=== PATIENT | male | born 1950 | race Caucasian/White ===

== ENCOUNTER 2020-05-21 10:12 | Emergency (ER) | payer MEDICARE ==
[2020-05-21 10:50] LABS: INTERNATIONAL RATION (INR) 1.56; PROTHROMBIN TIME 18.8 SEC (11.4-15.4)
[2020-05-21 11:00] LABS: ALKALINE PHOSPHATASE 97 U/L (38-126); ANION GAP 8 (5-19); ASPARTATE AMINO TRANSFERASE 97 U/L (17-59); BILIRUBIN,TOTAL 8.1 mg/dL (0.2-1.3); BLOOD UREA NITROGEN 31 mg/dL (7-20); CALCIUM 8.7 mg/dL (8.4-10.2); CARBON DIOXIDE 24 mmol/L (22-30); CHLORIDE 100 mmol/L (98-107); GLUCOSE 200 mg/dL (75-110); POTASSIUM 3.4 mmol/L (3.6-5.0)
[2020-05-21 11:03] LABS: VENOUS BLOOD BASE EXCESS -0.1 mmol/L; VENOUS BLOOD HCO3 24.8 mmol/L (20-32); VENOUS BLOOD PCO2 41.7 mmHg (35-63); VENOUS BLOOD PH 7.39 (7.30-7.42)
--- NOTE | 2020-05-21 11:06 | RADIOLOGY REPORT (SQ) ---
EXAM DESCRIPTION: CHEST SINGLE VIEW IMAGES COMPLETED DATE/TIME: 05/21/2020 10:43 am REASON FOR STUDY: bed 9 sepsis protocol COMPARISON: None. EXAM PARAMETERS: NUMBER OF VIEWS: One view. TECHNIQUE: Single frontal radiographic view of the chest acquired. RADIATION DOSE: NA LIMITATIONS: None. FINDINGS: LUNGS AND PLEURA: No opacities, masses or pneumothorax. No pleural effusion. MEDIASTINUM AND HILAR STRUCTURES: No masses. Contour normal. HEART AND VASCULAR STRUCTURES: Heart normal in size. Normal vasculature. BONES: No acute findings. HARDWARE: None in the chest. OTHER: No other significant finding. IMPRESSION: NO ACUTE RADIOGRAPHIC FINDING IN THE CHEST. TECHNICAL DOCUMENTATION: JOB ID: [id number] 2010 [employer]- All Rights Reserved Reading location - IP/workstation name: [email or web address]
--- NOTE | 2020-05-21 11:44 | ER Document Report ---
ED General - General Chief Complaint: Fall Stated Complaint: WEAKNESS Time Seen by Provider: 05/21/20 11:18 Primary Care Provider: TARAN RODRIGUEZ PA-C [Primary Care Provider] - Follow up as needed Mode of Arrival: Medic Information source: Patient, Emergency Med Personnel Notes: 05/21/20 10:54 - ED Nursing Note by DIANA YEE Acct Num: [id number] : 1950 Patient Age: 69 Pt presents to the ED via EMS for CC of falls/weakness. EMS states that patient states that he has been having several falls the last couple of days with yesterday being the most recent day of falls. EMS states that patient states that the right leg is much more weaker than normal. EMS states that patient has a history of MS. EMS states that patient states that he is unable to stand straight up and extend his back completely. EMS states that patient had a negative rapid COVID test for them and that his temperature was 100.8. EMS states they did not give tylenol due to the patient having liver disease. EMS placed a 20G in LAC and gave the patient 350ml of LR. Pt states that he has progressively gotten weaker the last couple of days and thinks he is having a MS flare up. Pt states his hands and legs are weaker. Pt denies any SOB. Pt is noted to be retracting with lower abdominal muscles and having mild labor breathing. Pt is placed on 2L NC for comfort due to O2 sat 96 without oxygen. Pt right leg is noted to be swollen. Pt states that he stopped taking his "water pill" along time ago due to it making him urinate alot. Pt is noted to have jaundice in the face and eyes. MY NOTES 69-year-old male with chief complaint of falling and weakness. He has a past medical history of multiple sclerosis and also has some liver disease with ascites. Patient reports he stopped taking his diuretic because of increased urination. Patient has icteric appearing skin. Patient is fair historian but has often some garbled words. He appears to understand and speak with a [place] accent in Persian. Patient reports they moved to [place] 3 years ago from [place] and has not seen a neurologist for his multiple sclerosis since that time. He drags his right lower extremity when walking and yesterday was struggling to move from place to place and fell on the floor and laid there for 45 minutes. Jenelle who works at [employer] came home to f ind him on the floor and it took many minutes in order to help get him up. He does not have home health and his very thin elderly appearing is the main caregiver for this large man. He also has ascites of his abdomen with umbilicus outi. Patient and advise he has never been a drinking man but quit smoking 1 pack/day over 23 years ago. Patient's chest x-ray is NAD today. Patient repo rts he does have pain in his right anterior and lateral ribs after falling yesterday. He no longer has chest pain today but his troponin is 1.28 ; I spoke with Dr. Bañuelos at 1145 by telephone about this patient. He advised patient to be either admitted to [facility] if he has any febrile issues like with Covid or transfer to [facility] if not. He called back again at 1200 hrs. to advised the latter. His reports she works at [employer] only 5 minutes from their house and patient usually comes in on a daily basis and stays around an hour to to drink some coffee but otherwise does not come out of the house. TRAVEL OUTSIDE OF THE [place] IN LAST 30 DAYS: No - Related Data Allergies/Adverse Reactions: No Known Allergies Allergy (Verified 05/21/20 11:37) Past Medical History - Social History Smoking Status: Former Smoker - Patient quit smoking 23 years ago Cigarette use (# per day): No Chew tobacco use (# tins/day): No Smoking Education Provided: No Frequency of alcohol use: None - Denies ever having any alcohol use. Drug Abuse: None Lives with: Family Family History: Reviewed & Not Pertinent Patient has suicidal ideation: No Patient has homicidal ideation: No - Past Medical History Cardiac Medical History: Reports: None Pulmonary Medical History: Reports: None Review of Systems - Review of Systems Constitutional: See HPI, Fever, Malaise, Weakness EENT: No symptoms reported Cardiovascular: No symptoms reported Respiratory: No symptoms reported Gastrointestinal: No symptoms reported Genitourinary: No symptoms reported Male Genitourinary: No symptoms reported Musculoskeletal: No symptoms reported Skin: No symptoms reported Hematologic/Lymphatic: No symptoms reported Neurological/Psychological: No symptoms reported -: Yes All other systems reviewed and negative Physical Exam - Vital signs Vitals: Resp Pulse Ox 25 H 94 05/21/20 10:17 05/21/20 10:17 Interpretation: Normal - General General appearance: Appears well, Alert - HEENT Head: Normocephalic, Atraumatic Eyes: Normal Pupils: PERRL Sinus: Normal Nasal: Normal Mouth/Lips: Normal Mucous membranes: Dry - Respiratory Respiratory status: No respiratory distress Chest status: Nontender Breath sounds: Normal Chest palpation: Normal - Cardiovascular Rhythm: Regular Heart sounds: Normal auscultation Murmur: No - Abdominal Inspection: Morbidly Obese Distension: Distended - Ascites Bowel sounds: Normal Tenderness: Nontender Organomegaly: No organomegaly - Rectal Prostate: Other - Deferred - Genitourinary Scrotum: Other - Deferred - Back Back: Normal, Nontender - Extremities General upper extremity: Normal inspection, Nontender, Normal color, Normal ROM, Normal temperature General lower extremity: Normal color, Normal temperature, Other - Right lower extremity with sensation intact but no motor strength. Left leg able to lift against gravity but otherwise 4 out of 5 strength. Patient and report easily drags his right lower extremity and uneasy gait. He has been doing this for years. No: Mckenna's sign - Neurological Neuro grossly intact: Yes Cognition: Normal Orientation: AAOx4 [place] Coma Scale Eye Opening: Spontaneous [place] Coma Scale Verbal: Oriented [place] Coma Scale Motor: Obeys Commands Toni Coma Scale Total: 15 Speech: Normal Motor strength normal: LUE, RUE, LLE, RLE Sensory: Normal - Psychological Associated symptoms: Normal affect, Normal mood - Skin Skin Temperature: Warm Skin Moisture: Dry Skin Color: Normal Course - Vital Signs Vital signs: Temp Pulse Resp BP Pulse Ox 100.5 F H 17 106/47 L 98 05/21/20 10:18 05/21/20 14:00 05/21/20 12:01 05/21/20 14:00 - Laboratory Results Result Diagrams: 05/21/20 12:14 05/21/20 10:24 Laboratory Results Interpreted: 05/21/20 05/21/20 05/21/20 10:24 10:24 10:24 RBC Hgb Hct RDW Plt Count Lymph % (Auto) Seg Neutrophils % PT 18.8 H Sodium 131.5 L Potassium 3.4 L BUN 31 H Glucose 200 H Total Bilirubin 8.1 H Direct Bilirubin 6.0 H AST 97 H Creatine Kinase 690 H NT-Pro-B Natriuret Pep Total Protein 6.0 L Albumin 3.0 L Urine Protein Urine Blood Urine Urobilinogen 05/21/20 05/21/20 05/21/20 10:24 12:14 15:10 RBC 4.03 L Hgb 11.9 L Hct 35.2 L RDW 16.4 H Plt Count 61 L Lymph % (Auto) 6.3 L Seg Neutrophils % 84.8 H PT Sodium Potassium BUN Glucose Total Bilirubin Direct Bilirubin AST Creatine Kinase NT-Pro-B Natriuret Pep 2220 H Total Protein Albumin Urine Protein 30 H Urine Blood MODERATE H Urine Urobilinogen 2.0 H Critical Laboratory Results Reviewed: Yes Attending or Supervising Physician who Reviewed Labs: RYAN BALLARD JR - Radiology Results Radiology Results Interpreted: 05/21/20 12:23 Dr. Kaz sylvester read chest x-ray as NAD 05/21/20 13:00 Dr. Padilla called at 1300 to advise patient has very little ascites and most of the abdomen is abdominal adipose with some hernia. He does have splenomegaly. CT is being read as he discussed ultrasound with me. He did not tap this man for centesis. 05/21/20 14:49 Dr. Griffith read CTs with positive ascites around liver and spleen with renomegaly positive and also recannulization of the umbilical vein. CTA chest was negative chest x-ray was negative Critical Radiology Results Reviewed: Yes Attending or Supervising Physician who Reviewed Radiology: RYAN BALLARD JR EKG Interpretation by Me EKG shows normal: Sinus rhythm Rate: Normal Rhythm: NSR - With noHeart rate was [address] elevation with mild depression on anterior leads V5 and V6. Also Dr. Bañuelos evaluated this. There is no T wave inversion or T wave elevation. This EKG was read by myself as well as Dr. Ayaan Linares. I agree with the EKG machine readings as well. Critical Care Note - Critical Care Note Comments: As per direction of good Dr. Bañuelos I called [facility] and spoke with Jessica at 1313 to alert potential for transfer but only if Covid is negative. Patient does has a tendency to go to [employer] every morning to drink coffee for around 1 hour each day. He denies any Covid contacts. Covid test returned as negative and I again called Dianna at [facility] at 1500 and she will get cardiology on line. I spoke with Dr. Vance at [facility] at 1528 and he will advise us later about a bed. Discharge - Discharge Clinical Impression: Multiple sclerosis, Dehydration, Elevated troponin Fever Qualifiers: Fever type: unspecified Qualified Code(s): R50.9 - Fever, unspecified CHF (congestive heart failure) Qualifiers: Heart failure type: unspecified Heart failure chronicity: unspecified Qualified Code(s): I50.9 - Heart failure, unspecified Condition: Stable Disposition: [facility] Unit Admitted: Telemetry Additional Instructions: Transfer this patient to [facility] ALS cardiac precautions/also physical gurney precaution because of MS. Referrals: TARAN RODRIGUEZ PA-C [Primary Care Provider] - Follow up as needed
[2020-05-21] MEDS ORDERED: NORMAL SALINE 1000 ML 1,000 ML IV ONE (12:12)
--- NOTE | 2020-05-21 12:24 | EKG REPORT ---
SEVERITY:- ABNORMAL ECG - SINUS RHYTHM NONSPECIFIC ST-T CHANGES- ANTERIOR LEADS : Confirmed by: Fransisco Taylor MD 21-May-2020 12:24:05
[2020-05-21 12:30] LABS: ABSOLUTE LYMPHOCYTES (AUTO) 0.5 10^3/uL (0.5-4.7); ABSOLUTE MONOCYTES (AUTO) 0.6 10^3/uL (0.1-1.4); ABSOLUTE NEUT (AUTO) 6.7 10^3/uL (1.7-8.2); BASOPHILS % (AUTO) 0.6 % (0-2); EOSINOPHILS % (AUTO) 0.1 % (0-6); HEMATOCRIT 35.2 % (37.9-51.0); HEMOGLOBIN 11.9 g/dL (13.5-17.0); LYMPHOCYTES % (AUTO) 6.3 % (13-45); MEAN CORPUSCULAR HEMOGLOBIN 29.4 pg (27.0-33.4); MEAN CORPUSCULAR HGB CONC 33.6 g/dL (32.0-36.0); MEAN CORPUSCULAR VOLUME 87 fl (80-97); MONOCYTES % (AUTO) 8.2 % (3-13); RED BLOOD COUNT 4.03 10^6/uL (4.35-5.55); RED CELL DISTRIBUTION WIDTH 16.4 % (11.5-14.0); SEGMENTED NEUTROPHILS % (AUTO) 84.8 % (42-78); TOTAL CELLS COUNTED % (AUTO) 100 %; WHITE BLOOD COUNT 7.9 10^3/uL (4.0-10.5)
[2020-05-21 12:38] LABS: PLATELET COUNT 61 10^3/uL (150-450)
--- NOTE | 2020-05-21 13:03 | RADIOLOGY REPORT (SQ) ---
EXAM DESCRIPTION: CT CHEST WITH IMAGES COMPLETED DATE/TIME: 05/21/2020 12:51 pm REASON FOR STUDY: cp inc troponin COMPARISON: None. TECHNIQUE: CT scan of the chest performed using helical scanning technique with dynamic intravenous contrast injection. Images reviewed with lung, soft tissue and bone windows. Reconstructed coronal and sagittal MPR and MIP images reviewed. All images stored on PACS. All CT scanners at this facility use dose modulation, iterative reconstruction, and/or weight based d osing when appropriate to reduce radiation dose to as low as reasonably achievable (ALARA). [facility]: Dose Right [facility]: CareDose [facility]: Dose Right [facility]: Teradose 4D [facility]: [employer] CONTRAST TYPE AND DOSE: contrast/concentration: Isovue 350.00 mmol/ml; Total Contrast Delivered: 100 .0 ml; Total Saline Delivered: 47.0 ml RENAL FUNCTION: BUN 31 creatinine 1 RADIATION DOSE: CT Rad equipment meets quality standard of care and radiation dose reduction techniq ues were employed. CTDIvol: NaN - NaN mGy. DLP: 0 mGy-cm. . LIMITATIONS: None. FINDINGS: LUNGS AND PLEURA: No opacities, nodules, masses. No pneumothorax. No effusions. HILAR AND MEDIASTINAL STRUCTURES: No identified masses or abnormal nodes. HEART AND VASCULAR STRUCTURES: No aneurysm or dissection. No central pulmonary emboli. No pericardi al effusion. Prominent coronary artery calcifications are present. HARDWARE: None in the chest. UPPER ABDOMEN: See separate report of the CT of the abdomen. THYROID AND OTHER SOFT TISSUES: No masses. No adenopathy. BONES: No significant finding. OTHER: No other significant finding. IMPRESSION: Coronary artery calcifications. No acute findings in the thorax. TECHNICAL DOCUMENTATION: JOB ID: [id number] Quality ID # [id number]: Final reports with documentation of one or more dose reduction techniques (e.g., Au tomated exposure control, adjustment of the mA and/or kV according to patient size, use of iterative reconstruction technique) 2010 [employer]- All Rights Reserved Reading location - IP/workstation name: [email or web address]
--- NOTE | 2020-05-21 13:19 | RADIOLOGY REPORT (SQ) ---
EXAM DESCRIPTION: CT ABD/PELVIS WITH IV ONLY IMAGES COMPLETED DATE/TIME: 05/21/2020 12:51 pm REASON FOR STUDY: ascites/ COMPARISON: None. TECHNIQUE: CT scan of the abdomen and pelvis performed using helical scanning technique with dynamic intravenous contrast injection. No oral contrast. Images reviewed with lung, soft tissue, and bone windows. Reconstructed coronal and sagittal MPR images reviewed. Delayed images for evaluation of the urinary system also acquired. All images stored on PACS. All CT scanners at this facility use dose modulation, iterative reconstruction, and/or weight based d osing when appropriate to reduce radiation dose to as low as reasonably achievable (ALARA). [facility]: Dose Right [facility]: CareDose [facility]: Dose Right [facility]: Teradose 4D [facility]: [employer] CONTRAST TYPE AND DOSE: 100 mL Omnipaque 350- low osmolar. RENAL FUNCTION: BUN 31 creatinine 1 RADIATION DOSE: . LIMITATIONS: None. FINDINGS: LOWER CHEST: See separate report of the CT of the chest. LIVER: Normal size. No masses. There is some ascites around the liver. SPLEEN: Splenomegaly. There is ascites around the spleen. PANCREAS: No masses. No significant calcifications. No adjacent inflammation or peripancreatic fluid collections. Pancreatic duct not dilated. GALLBLADDER: There is thickening of the gallbladder wall likely secondary to the presence of ascites. ADRENAL GLANDS: No significant masses or asymmetry. RIGHT KIDNEY AND URETER: No solid masses. No significant calcifications. No hydronephrosis or hyd roureter. LEFT KIDNEY AND URETER: No solid masses. No significant calcifications. No hydronephrosis or hydr oureter. AORTA AND VESSELS: No aneurysm. No dissection. Renal arteries, SMA, celiac without stenosis. RETROPERITONEUM: No retroperitoneal adenopathy, hemorrhage or masses. BOWEL AND PERITONEAL CAVITY: Mild ascites. No obvious bowel mass or inflammation. APPENDIX: Not identified. PELVIS: No mass. No free fluid. Normal bladder. ABDOMINAL WALL: Small umbilical hernia. There is apparent recanalization of the umbilical vein. BONES: No significant or acute findings. OTHER: No other significant finding. IMPRESSION: Splenomegaly. Mild ascites. Apparent recanalization of the umbilical vein. TECHNICAL DOCUMENTATION: JOB ID: [id number] Quality ID # [id number]: Final reports with documentation of one or more dose reduction techniques (e.g., Au tomated exposure control, adjustment of the mA and/or kV according to patient size, use of iterative reconstruction technique) 2010 [employer]- All Rights Reserved Reading location - IP/workstation name: [email or web address]
[2020-05-21] MEDS ORDERED: ASPIRIN 81 MG TABLET, CHEWABLE PO ONE (15:20)
[2020-05-21 15:38] LABS: APPEARANCE,URINE CLEAR; BILIRUBIN,URINE NEGATIVE (NEGATIVE); COLOR,URINE AMBER; GLUCOSE, URINE NEGATIVE (NEGATIVE); KETONES,URINE NEGATIVE (NEGATIVE); LEUKOCYTE ESTERASE,URINE NEGATIVE (NEGATIVE); NITRITE,URINE NEGATIVE (NEGATIVE); PROTEIN,URINE 30 mg/dL (NEGATIVE)
[2020-05-21 17:22] VITALS: BP 111/64
== END 2020-05-21 17:21 | disposition short-term general hospital (02) ==
LOC: ER 10:12
DX: G35 Multiple sclerosis (principal); E86.0 Dehydration; R53.1 Weakness; R78.89 Finding of other specified substances, not normally found in blood; R50.9 Fever, unspecified; I50.9 Heart failure, unspecified; Z20.828 Contact with and (suspected) exposure to other viral communicable diseases
CPT/HCPCS: 93005; 99285; 96360; 36415; 87040; 87086; 82550; 83605; 85025; 85610; 0241U ×4; 87077; 80053; 81001; 84484; 82803; 87150 ×26; 83880; 71045; 71260; 74177; 93010; A9270; J7030; C9803